=== PATIENT | male | born 1940 | race Caucasian/White ===

== ENCOUNTER 2019-03-30 13:40 | Inpatient (IN) | payer OTHER ==
[~2019-03-30] VITALS: Ht 170.2 cm; Wt 72.6 kg
[2019-03-30] MEDS ORDERED: CLARITHROMYCIN500 M1 (14:36)
[2019-03-30] MEDS ORDERED: NAMENDA10 MG (14:36)
[2019-03-30] MEDS ORDERED: CITALOPRAM20 MG/10 M (14:37)
[2019-03-30] MEDS ORDERED: ASPIR 8181 MG (14:38)
[2019-03-30] MEDS ORDERED: ETHAMBUTOL 400 MG (14:38)
[2019-03-30] MEDS ORDERED: PLAVIX75 MG (14:39)
[2019-03-30] MEDS ORDERED: AMLODIPINE 5 MG (14:39)
[2019-04-01] MEDS ORDERED: AMLODIPINE BESYL5 MG (09:06)
[2019-04-01] MEDS ORDERED: ETHAMBUTOL HCL400 MG (09:06)
== END 2019-04-04 14:23 | disposition home or self-care (01) | DRG 470 ==
LOC: ER 13:40 → SURH 03-31 15:46
PROVIDERS: ADMIT Orthopaedic Surgery
PROC: 0SRR0J9 Replacement of Right Hip Joint, Femoral Surface with Synthetic Substitute, Cemented, Open Approach (ICD-10-PCS; principal; 2019-03-31)
PROC: 0MBL0ZZ Excision of Right Hip Bursa and Ligament, Open Approach (ICD-10-PCS; 2019-03-31)
PROC: 4A033R1 Measurement of Arterial Saturation, Peripheral, Percutaneous Approach (ICD-10-PCS; 2019-03-31)
DX: S72.031A Displaced midcervical fracture of right femur, initial encounter for closed fracture (principal); A31.8 Other mycobacterial infections; M70.61 Trochanteric bursitis, right hip; I70.0 Atherosclerosis of aorta; I10 Essential (primary) hypertension; K57.30 Diverticulosis of large intestine without perforation or abscess without bleeding

== ENCOUNTER → 2019-05-06 | Outpatient (CLI) | payer OTHER ==
[~2019-05-06] MED LIST: AMLODIPINE 5 MG; AMLODIPINE BESYL5 MG; ASPIR 8181 MG; CITALOPRAM20 MG/10 M; CLARITHROMYCIN500 M1; ETHAMBUTOL 400 MG; ETHAMBUTOL HCL400 MG; NAMENDA10 MG; PLAVIX75 MG
== END | disposition home or self-care (01) ==
LOC: RAD 14:39
DX: Z96.641 Presence of right artificial hip joint (principal)

== ENCOUNTER 2019-05-09 09:27 | Outpatient (CLI) | payer OTHER | END 2019-05-09 15:00 | disposition home or self-care (01) | LOC: LAB 09:27 | DX: M85.88 Other specified disorders of bone density and structure, other site (principal); E21.2 Other hyperparathyroidism; E88.89 Other specified metabolic disorders; M81.8 Other osteoporosis without current pathological fracture; E56.1 Deficiency of vitamin K; M06.4 Inflammatory polyarthropathy; D64.89 Other specified anemias ==

== ENCOUNTER 2019-05-14 14:04 | Outpatient (CLI) | payer OTHER | END 2019-05-14 14:07 | disposition home or self-care (01) | LOC: NUCLEAR 14:04 | DX: M81.0 Age-related osteoporosis without current pathological fracture (principal); Z96.641 Presence of right artificial hip joint ==

== ENCOUNTER 2019-05-14 14:57 | Outpatient (CLI) | payer OTHER | END 2019-05-14 15:04 | disposition home or self-care (01) | LOC: LAB 14:57 | DX: D64.89 Other specified anemias (principal); M06.4 Inflammatory polyarthropathy ==

== ENCOUNTER 2019-05-23 11:54 | Outpatient (CLI) | payer OTHER | END 2019-05-23 15:00 | disposition home or self-care (01) | LOC: LAB 11:54 | DX: N39.0 Urinary tract infection, site not specified (principal); D64.89 Other specified anemias; M06.4 Inflammatory polyarthropathy ==

== ENCOUNTER 2019-05-27 09:39 | Outpatient (CLI) | payer OTHER | END 2019-05-27 15:00 | disposition home or self-care (01) | LOC: LAB 09:39 | DX: N39.0 Urinary tract infection, site not specified (principal); D64.89 Other specified anemias; M06.4 Inflammatory polyarthropathy ==